=== PATIENT | male | born 1985 | race Caucasian/White ===

== ENCOUNTER 2017-01-20 11:54 | Emergency (ER) | payer MEDICAID ==
[~2017-01-20] VITALS: Ht 157.5 cm; Wt 80.7 kg
[2017-01-20 11:58] VITALS: Ht 157.5 cm; Wt 80.7 kg
--- NOTE | 2017-01-20 12:26 | ERD ---
ER Documentation Chief Complaint Chief Complaint Lip Laceration afer a fall HPI 31-year-old male, previously healthy, presents to the emergency department complaining of open wound on his lower lip that occurred approximately 3 hours ago after a ground-level fall. The patient currently is complaining of pain, sharp, 4 out of 5. No active bleeding. No dental injury. No loss of consciousness. ROS SYSTEMIC symptoms: no fever, chills, no night sweats, no weight loss EYE symptoms: No blurred vision, no eye discharge OTOLARYNGEAL symptoms: No hearing loss. No ear pain, no sore throat CARDIOVASCULAR symptoms: No chest pain or discomfort, no palpitations. PULMONARY symptoms: No dyspnea, no cough, no wheezing. GASTROINTESTINAL symptoms: No abdominal pain, no nausea, no vomiting, no diarrhea MUSCULOSKELETAL symptoms: No arthralgias, no muscle aches. NEUROLOGY symptoms: No confusion, no syncope, no numbness or tingling. SKIN no rashes Allergies Allergies: Coded Allergies: No Known Allergy (Unverified , 01/20/17) Physical Exam Vitals Vital Signs Date Time Temp Pulse Resp B/P Pulse Ox O2 Delivery O2 Flow Rate FiO2 01/20/17 11:58 98.9 106 20 142/94 97 Physical Exam Patient is in no acute distress, vital signs stable. Alert and fully oriented. EYES: PERRLA, EOMI, Sclera and conjunctiva appear normal. EARS: Canals clear, tympanic membranes WNL THROAT: Open wound on right lower lip, 1 cm, irregular, no active bleeding. No dental injury. No foreign body seen NECK: Supple, No lymphadenopathy. Full ROM without pain or tenderness. HEART: RRR, no rubs, murmurs, clicks or gallops. LUNGS: Clear to auscultation. ABDOMEN: Soft, non-tender without masses or hepatosplenomegaly. Procedures/MDM 31-year-old male, previously healthy, presents to the emergency department complaining of lower lip open wound that occurred 3 hours prior to arrival. Vital signs stable, physical exam showed an irregular wound on the right corner of the lower lip, superficial, no foreign body seen and no vessels seen. No active bleeding. Physical examination and clinical presentation consistent most likely with amputated open wound of the mouth. During the ED course the patient made stable and asymptomatic. Clinical impression and they have treatment discussed with patient at this time he refuses to have stitches, he prefers conservative management of the wound. The patient is stable to be treated outpatient and will be discharged home with a Rx for ibuprofen as needed for pain. Side effects of prescribed NSAID medication (GI distress, edema, bleeding, HTN) were reviewed. The patient was instructed to follow up with the primary care provider in the next 48h. If symptoms persist, worsen or new symptoms develop, then patient should return to the ED immediately. Instructions explained and given to patient with acknowledgment and demonstrated understanding. Disclaimer: Inadvertent spelling and grammatical errors are likely due to EHR/ dictation software use and do not reflect on the overall quality of patient care. Also, please note that the electronic time recorded on this note does not necessarily reflect the actual time of the patient encounter. Departure Diagnosis: Primary Impression: Open wound of lip without complication Condition: Stable Patient Instructions: Laceration, All Additional Instructions: Thank you very much for allowing us to participate in your care. Your health and safety is our top priority at [facility]. Have prescriptions filled and follow precisely the directions on the label. Follow-up with primary care provider during the next 4 days and bring all the information and medications prescribed. If illness has not improved in 2 days, then make an appointment with primary care provider. If the provider is unavailable, return to the Emergency Department immediately. GOLDY GONZALEZ MD Jan 20, 2017 12:26
[2017-01-20] MEDS ORDERED: IBUP-1542 PO (12:27)
== END 2017-01-20 12:54 | disposition home or self-care (01) ==
LOC: FTE 11:54
DX: S01.501A Unspecified open wound of lip, initial encounter (principal); W18.39XA Other fall on same level, initial encounter; Y92.9 Unspecified place or not applicable
CPT/HCPCS: 99283